=== PATIENT | female | born 2005 | race Caucasian/White ===

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

== ENCOUNTER 2024-12-13 20:58 | Emergency (ER) | payer OTHER, MEDICAID, SELFPAY ==
[2024-12-13 21:26] VITALS: BP 112/77; PULSE 98; RESP 18; TEMP 37.4; O2SAT 100
[2024-12-13 21:44] LABS: Add Urine Microscopic? YES; Appearance Urine Clear (Clear); Glucose Urine UA Negative (Negative); Leukocyte Esterase Ur 1+ LEU/UL (Negative); Nitrate Urine Negative (Negative); Specific Grav Ur <= 1.005 (1.010-1.020)
--- NOTE | 2024-12-13 21:44 | ED.FEMALEGU ---
HPI - Female Genitourinary General Chief complaint: Urogenital-Female Stated complaint: UTI Time Seen by Provider: 12/13/24 21:44 Source: patient and family Mode of arrival: ambulatory History of Present Illness HPI Narrative: 19 YEARS OLD WHITE FEMALE CAME TO THE ED BY PRIVATE CAR FROM HOME COMPLAINING OF URINE FREQUENCY AND URGENCY ASSOCIATED WITH LOWER BACK PAIN FOR THE LAST 2 DAYS. SHE DENIES ANY FEVER, CHILLS, NAUSEA, VOMITING. Related Data Allergies Allergy/AdvReac Type Severity Reaction Status Date / Time No Known Allergies Allergy Verified 04/05/23 15:22 Review of Systems Review of Systems: All systems reviewed & are unremarkable except as noted in HPI and below Exam Narrative: GENERAL APPEARANCE: WELL-DEVELOPED, WELL-NOURISHED SKIN: NORMAL COLOR HEAD: NORMOCEPHALIC, NONTRAUMATIC EYES: CLEAR CONJUNCTIVA ENT: OROPHARYNX NORMAL, EARS NORMAL, NOSE NORMAL NECK: SUPPLE, NONTENDER CHEST AND RESPIRATORY: AIRWAY PATENT, NO RESPIRATORY DISTRESS, NO ACCESSORY MUSCLE USE HEART: REGULAR RATE/RHYTHM ABDOMEN: SOFT, NONTENDER, NO ORGANOMEGALY, QUIET BOWEL SOUNDS MUSCULOSKELETAL: NORMAL RANGE OF MOTION, NONTENDER BACK NEUROLOGIC: ALERT AND ORIENTED ?3, 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, NO GROSS MOTOR DEFICIT Course Vital Signs Vital signs: Vital Signs Temperature 37.4 C 12/13/24 21:26 Pulse Rate 98 12/13/24 21:26 Respiratory Rate 18 12/13/24 21:26 Blood Pressure 112/77 12/13/24 21:26 Pulse Oximetry 100 12/13/24 21:26 Oxygen Delivery Room Air 12/13/24 21:26 Temperature 37.4 C 12/13/24 21:26 Pulse Rate 98 12/13/24 21:26 Respiratory Rate 18 12/13/24 21:26 Blood Pressure 112/77 12/13/24 21:26 Pulse Oximetry 100 12/13/24 21:26 Oxygen Delivery Room Air 12/13/24 21:26 MDM - Female Genitourinary MDM Narrative Medical decision making narrative: PATIENT PRESENTS WITH URINE FREQUENCY AND URGENCY DIFFERENTIAL DIAGNOSIS URINARY TRACT INFECTION URINALYSIS SHOWED EVIDENCE OF INFECTION DISCHARGED ON MACROBID AND PYRIDIUM Differential Diagnosis Differential diagnosis: Likely urinary tract infection Medical Records Attestation: I reviewed the patient's medical records. Lab Data Attestation: I reviewed the patient's lab results. Labs: Lab Results 11/03/25 Range/Units 21:35 Urine Color Light yellow (Yellow) Urine Appearance Clear (Clear) Urine pH 6.5 (5.0-8.0) Ur Specific [place] <= 1.005 L (1.010-1.020) Urine Protein Negative (Negative) Urine Glucose (UA) Negative (Negative) Urine Ketones Negative (Negative) Ur Blood (Man) 1+ H (Negative) Urine Nitrate Negative (Negative) Urine Bilirubin Negative (Negative) Urine Urobilinogen 0.2 (0.2-1.0) mg/dL Leukocyte Esterase Rfl 1+ H (Negative) GABRIELLA/UL Urine RBC 3-5 H (0-2) /hpf Urine WBC 10-15 H (0-3) /hpf Ur Squamous Epith Cells Occasional (Few) /hpf Urine Bacteria Trace (None) /hpf Critical Care Time Critical Care Time Critical Care Time: No Discharge Plan Discharge Clinical Impression: Urinary tract infection Patient Disposition: Home Condition: Stable Instructions: Antibiotic Form, Urinary Tract Infection in Women (DC) Additional Instructions: RETURN IF SYMPTOMS ARE WORSENING , CALL YOUR FAMILY PHYSICIAN FOR APPOINTMENT, TAKE TYLENOL NEEDED FOR ACHES AND PAIN, CONTINUE HOME MEDICATIONS. Patient Language: Kiswahili Prescriptions: New nitrofurantoin monohyd/m-cryst [Macrobid] 100 mg capsule 100 mg PO Q12H 5 Days Qty: 10 0RF Rx Instructions: must administer with a meal/food phenazopyridine [Pyridium] 200 mg tablet 200 mg PO TID PRN (Reason: pain) Qty: 6 0RF No Action doxycycline hyclate 100 mg tablet 100 mg PO BID Qty: 20 0RF ciprofloxacin-dexamethasone 0.3-0.1 % drops,suspension 4 drp EACH EAR Q12H 7 Days Qty: 7.5 0RF Follow-up/Referrals: UNKNOWN,DOCTOR [Non-Staff]
--- OUTSIDE RECORDS SUMMARY | 2024-12-13 22:02 | XMS_ITS | Clinical Summary ---
Author Organization [facility] Address [facility] [facility] [place] [address] Care Team Providers Care Laborer Shaft Sinking Name Role Phone Vashti Celeste MD Primary Care Provider [phone] Source Comments [facility],non-[facility] Affiliates and Associated Physician Practices is amultiple site organization consisting of ambulatory clinics and hospital sitesin [place], [place], [place] and [place]. This disclosure is being madepursuant to the Care Everywhere program and may not contain all information available regarding this patient. Last updated 17.[facility] Allergies No known active allergies Medications * Be aware that medications may not be up to date on this document. Alwaysverify current medications with the patient. ibuprofen (ADVIL; MOTRIN) 100 MG/5ML SUSP suspension Take 30 mL by mouth every 6 hours as needed for Pain or Fever 300 mL 0 09/03/2014 Active albuterol HFA (PROVENTIL;MATILDA BOBBY;PROAIR) 108 (90 BASE) MCG/ACT inhaler Inhale 2 Puffs by mouth every 6 hours as needed Active loratadine (CLARITIN) 10 MG tablet Take 10 mg by mouth once daily Active Active Problems Problem Noted Date Diagnosed Date Closed right ankle fracture 09/27/2014 Hypertrophy of tonsils and adenoids Sleep-disordered breathing Family History Medical History Relation Name Comments Anesthesia Reaction Neg Hx Bleeding Disorders Neg Hx Ear Infections Neg Hx Hearing Loss Neg Hx Social History Tobacco Use Types Packs/Day Years Used Date Smoking Tobacco: Passive Smo ke Exposure - Never Smoker Comments No Sex and Gender Information Value Date Recorded Sex Assigned at Not on file Legal Sex Female 5:01 PM CDT Gender Identity Not on file Sexual Orientation Not on file Last Filed Vital Signs Vital Sign Reading Time Taken Comments Blood Pressure 135/82 10/06/2015 1:35 PM CDT Pulse 88 10/06/2015 1:35 PM CDT Temperature 36.7 C (98 F) 10/06/2015 11:53 AM CDT Respiratory Rate 22 10/06/2015 1:35 PM CDT Oxygen Saturation 97% 10/06/2015 1:35 PM CDT Inhaled Oxygen Concentration - - Weight 71.7 kg (158 lb 1.1 oz) 10/06/2015 9:50 A M CDT Height 158.5 cm (5' 2.4) 10/06/2015 9:50 AM CDT Body Mass Index 28.54 10/06/2015 9:50 AM CDT Plan of Treatment Health Maintenance Due Date Last Done Comments HIV SCREENING 04/19/2019 HPV VACCINE (1 - 3-dose series) 04/19/2019 CHLAMYDIA/GONORRHEA SCREENING 2020 MENINGOCOCCAL (Group B) VACC INE SHARED DECISION-MAKING (1 of 2 - Standard) 2020 HEPATITIS C SCREENING 04/14/2022 DTAP/TDAP/TD VACCINES (1 - Tdap) 04/19/2023 HEPATITIS B VACCINE (1 of 3 - 19+ 3-dose series) 04/19/2023 DEPRESSION SCREENING 02/11/2024 COVID-19 VACCINE (1 - 2023-2 5 season) 2024 INFLUENZA VACCINE (#1) 2024 ZOSTER VACCINE (1 of 2) 2054 HIB VACCINE Aged Out No longer eligi ble based on patient's age to complete this topic MENINGOCOCCAL GROUPS A/C/Y/W VACCINE Aged Out No longer eligible b ased on patient's age to complete this topic PNEUMOCOCCAL VACCINE Aged Out No long er eligible based on patient's age to complete this topic Insurance MEDICAID - [place] MED[place] - [place] Member Subscriber Plan / Payer (Ef fective for All Dates) Name:Angie Cole Relation to Subscriber:Self Name:Angie Cole Payer ID:Not on file Group ID:Not on file Type:Medicaid [place] Address: [place] [id number] MEDICAID - [place] Care Teams Laborer Shaft Sinking Relationship Specialty Start Date End Date Vashti Celeste MD [address] [place] [id number] PCP - General Pediatrics 09/03/14
[2024-12-13] MEDS: PHENAZOPYRIDINE HCL 100 MG TABLET 200 MG PO (22:20)
[2024-12-13] MEDS: NITROFURANTOIN MONOHYD MACROCR 100 MG CAP PO (22:20)
[2024-12-13 22:30] VITALS: BP 122/79; PULSE 75; RESP 18; TEMP 36.6; O2SAT 99
--- NOTE | 2024-12-16 13:49 | PC.NURSE ---
urine culture, final , mixed jena---abt macrobid. no changes per dr galan
== END 2024-12-13 22:31 | disposition home or self-care (01) ==
PROVIDERS: Emergency Provider Emergency Medicine; Referring Provider Internal Medicine
DX: N39.0 Urinary tract infection, site not specified (principal)
CPT/HCPCS: 81001; 87086; 99283; A9270